=== PATIENT | female | born 1965 | race African-American/Black ===

== ENCOUNTER 2025-02-08 22:27 | Inpatient (IN) | payer SELFPAY ==
[~2025-02-08] VITALS: Ht 165.1 cm; Wt 82.1 kg
[2025-02-08 22:33] VITALS: O2SAT 99
[2025-02-08 23:12] LABS: BASOPHILS % 0.2 % (0.0-2.0); EOSINOPHILS % 1.4 % (0.0-5.0); HEMATOCRIT. 35.8 % (36.0-48.0); HEMOGLOBIN. 11.6 g/dL (12.0-16.0); LYMPHOCYTES % 47.5 % (20.0-50.0); MEAN PLATELET VOLUME 9.3 fl (7.4-10.4); MONOCYTES % 6.7 % (2.0-8.0); NEUTROPHILS % 44.2 % (40.0-76.0); PLATELET 207 x1000/uL (130-400); RED BLOOD CELL COUNT 4.07 mill/uL (4.2-5.4); RED CELL DISTRIBUTION WIDTH 13.8 % (11.6-14.6)
[2025-02-08 23:23] LABS: INR 1.0
[2025-02-08 23:25] LABS: CREATININE 1.0 mg/dL (0.6-1.0); TROPONIN I HIGH SENSITIVITY 5 ng/L (3.0-34); UREA NITROGEN BLOOD 12 mg/dL (9-23)
[2025-02-08 23:26] LABS: ETHANOL BLOOD < 10 mg/dL (<10)
[2025-02-08 23:27] LABS: ASPARTATE AMINOTRANSFERASE 19 IU/L (<34); BILIRUBIN DIRECT 0.1 mg/dL (<=3.0); BILIRUBIN TOTAL 0.4 mg/dL (0.1-1.0); PROTEIN TOTAL 6.9 g/dL (6.0-8.3)
[2025-02-09 01:39] LABS: TROPONIN I HIGH SENSITIVITY 37 ng/L (3.0-34)
[2025-02-09] MEDS ORDERED: ONDANSETRON HCL 4MG/2ML INJ IV PRN (02:30)
[2025-02-09] MEDS ORDERED: CLONIDINE 0.1MG TABLET PO PRN (02:30)
[2025-02-09] MEDS ORDERED: GUAIFENESIN 200MG/10ML SUGAR FREE UDC PO PRN (02:30)
[2025-02-09] MEDS ORDERED: IPRATROPIUM/ALBUTEROL 0.5-3(2.5)MG/3ML NEB HHN PRN (02:30)
[2025-02-09] MEDS ORDERED: DOCUSATE SODIUM 100MG CAPSULE PO PRN (02:30)
[2025-02-09] MEDS ORDERED: MAGNESIUM/ALUMINUM HYDROXIDE/SIMETHICONE 30ML UDC PO PRN (02:30)
[2025-02-09] MEDS ORDERED: ACETAMINOPHEN 325MG TABLET PO PRN (02:30)
[2025-02-09 03:00] VITALS: BP 154/87; PULSE 61; RESP 18; TEMP 36.3068
[2025-02-09 04:00] VITALS: BP 143/83; PULSE 53; RESP 20; TEMP 36.7; O2SAT 100
[2025-02-09] MEDS ORDERED: HYDRALAZINE 20MG/ML VIAL IV PRN (04:00)
[2025-02-09] MEDS: POTASSIUM CHLORIDE 20MEQ TABLET SR PO NR (04:39)
[2025-02-09] MEDS: PANTOPRAZOLE SODIUM 40 MG/VIAL IV SCH (04:39)
[2025-02-09] MEDS ORDERED: AMLO10TA80 PO (05:39)
[2025-02-09 08:00] VITALS: BP 150/78; PULSE 50; RESP 18; TEMP 36.4; O2SAT 99
[2025-02-09] MEDS: AMLODIPINE 10MG TABLET PO SCH (09:07)
[2025-02-09] MEDS: ENOXAPARIN 40MG/0.4ML SYR SUBCUT SCH (09:07)
[2025-02-09 10:31] LABS: CLARITY URINE CLEAR (CLEAR); COLOR URINE YELLOW (YELLOW); GLUCOSE URINE NEGATIVE (NEGATIVE); KETONES URINE NEGATIVE (NEGATIVE); LEUKOCYTE ESTERASE URINE NEGATIVE (NEGATIVE); NITRITE URINE NEGATIVE (NEGATIVE); OCCULT BLOOD URINE NEGATIVE (NEGATIVE); PH URINE 7.0 (4.5-8.0); PROTEIN URINE NEGATIVE (NEGATIVE); SPECIFIC GRAVITY URINE 1.012 (1.005-1.030); UROBILINOGEN URINE 0.2 E.U./dL (0.2-1.0)
[2025-02-09 12:00] VITALS: BP 125/66; PULSE 54; RESP 18; TEMP 37.4; O2SAT 98
[2025-02-09 12:32] LABS: *AMPHETAMINES SCREEN URINE NEGATIVE (NEGATIVE); *BARBITURATES SCREEN URINE NEGATIVE (NEGATIVE); *BENZODIAZEPINES SCREEN URINE NEGATIVE (NEGATIVE); *COCAINE SCREEN URINE NEGATIVE (NEGATIVE); CANNABINOID URINE SCREEN PRESUMPTIVE POSITIVE (NEGATIVE); ECSTASY MDMA SCREEN URINE NEGATIVE (NEGATIVE); METHADONE URINE SCREEN NEGATIVE (NEGATIVE); OPIATES URINE SCREEN NEGATIVE (NEGATIVE); PHENCYCLIDINE URINE SCREEN NEGATIVE (NEGATIVE)
[2025-02-09 16:00] VITALS: BP 132/84; PULSE 65; RESP 22; TEMP 36.7; O2SAT 99
[2025-02-09 16:18] LABS: BASOPHILS % 0.2 % (0.0-2.0); EOSINOPHILS % 1.0 % (0.0-5.0); HEMATOCRIT. 37.0 % (36.0-48.0); HEMOGLOBIN. 12.4 g/dL (12.0-16.0); LYMPHOCYTES % 38.5 % (20.0-50.0); MEAN PLATELET VOLUME 9.1 fl (7.4-10.4); MONOCYTES % 6.8 % (2.0-8.0); NEUTROPHILS % 53.5 % (40.0-76.0); PLATELET 214 x1000/uL (130-400); RED BLOOD CELL COUNT 4.26 mill/uL (4.2-5.4); RED CELL DISTRIBUTION WIDTH 14.0 % (11.6-14.6)
[2025-02-09 16:33] LABS: TRIGLYCERIDE 118 mg/dL (0-150)
[2025-02-09 16:34] LABS: LDL CHOLESTEROL 126 mg/dL (5-100)
[2025-02-09 16:35] LABS: TROPONIN I HIGH SENSITIVITY 32 ng/L (3.0-34)
[2025-02-09] MEDS: ACETAMINOPHEN 325MG TABLET PO PRN (19:44)
[2025-02-09 20:00] VITALS: BP 151/84; PULSE 54; RESP 20; TEMP 35.9; O2SAT 99
[2025-02-09 21:24] LABS: TRIGLYCERIDE 120 mg/dL (0-150)
[2025-02-09 21:25] LABS: LDL CHOLESTEROL 130 mg/dL (5-100)
[2025-02-09 21:26] LABS: PHOSPHORUS 3.0 mg/dL (2.5-4.9); TROPONIN I HIGH SENSITIVITY 23 ng/L (3.0-34)
[2025-02-10] MEDS ORDERED: IBUPROFEN 400MG TABLET PO PRN
[2025-02-10 00:20] VITALS: BP 160/81; PULSE 58; RESP 20; TEMP 36.5; O2SAT 100
[2025-02-10] MEDS: IBUPROFEN 600MG TABLET PO PRN (00:27)
[2025-02-10 04:20] VITALS: BP 134/82; PULSE 54; RESP 18; TEMP 36.7; O2SAT 99
[2025-02-10 08:00] VITALS: BP 136/83; PULSE 69; RESP 18; TEMP 36.4; O2SAT 96
[2025-02-10 12:00] VITALS: BP 142/87; PULSE 66; RESP 18; TEMP 35.9; O2SAT 99
[2025-02-10] MEDS: ATORVASTATIN CALCIUM 40MG TABLET PO SCH (12:04)
[2025-02-10] MEDS: ASPIRIN 81MG TABLET PO SCH (12:04)
[2025-02-10] MEDS ORDERED: FAMO20TA8 PO (14:33)
[2025-02-10] MEDS ORDERED: LIP40 PO (14:33)
[2025-02-10] MEDS ORDERED: ASPI-1160 PO (14:33)
[2025-02-10] MEDS ORDERED: AMLO10TA80 PO (14:33)
[2025-02-10 14:44] VITALS: BP 142/87; PULSE 66; RESP 18; TEMP 96.6
== END 2025-02-10 18:20 | disposition home or self-care (01) | DRG 190 ==
LOC: ER 22:27 → 8WST 02-09 01:40 → EDBEDREQTM 02-09 01:44 → EDBEDREQ 02-09 01:44 → EDBEDREQDT 02-09 01:44 → ENRESERV 02-09 02:28
PROVIDERS: ADMIT Internal Medicine; ATTEND Internal Medicine
DX: R07.89 Other chest pain (principal); I21.A1 Myocardial infarction type 2; E78.5 Hyperlipidemia, unspecified; E87.6 Hypokalemia; K21.9 Gastro-esophageal reflux disease without esophagitis; I10 Essential (primary) hypertension; R73.9 Hyperglycemia, unspecified; Z79.899 Other long term (current) drug therapy; Z87.891 Personal history of nicotine dependence; Z88.5 Allergy status to narcotic agent
CPT/HCPCS: 36415; 71045; 80048; 80061; 80076; 80305; 80320; 81003; 83036; 83735; 83880; 84100; 84443; 84484; 85025; 93005; 99285; J0360; J1650; J2470; G0480